=== PATIENT | female | born 1990 | race Caucasian/White ===

== ENCOUNTER 2017-09-02 04:08 | Emergency (ER) | payer OTHER ==
--- NOTE | 2017-09-02 04:32 | ED Physician Documentation ---
PD HPI CHEST PAIN - Stated complaint Stated Complaint: CHEST PRESSURE,SOA - Chief complaint Chief Complaint: Cardiac - History obtained from History obtained from: Patient, Family - History of Present Illness Timing - onset: How many weeks ago Timing - onset during: Rest Timing - details: Intermittant Quality: Pressure Location: Substernal, Left chest, Right chest Improved by: Rest Associated symptoms: Shortness of air, Palpitations Similar symptoms before: Work up / diagnostics Recently seen: Clinic - Additional information Additional information: Patient is a 27 year old female who is presenting to the emergency department for chest pain, palpitations and shortness of breath. Patient states that it has been going on for a few weeks and it comes and goes. Patient was in a cast for a broken leg about a month ago. patient saw her doctor on the [employer] [place] 5 days ago and the work up at that time was negative. Patient is supposed to have follow up with a electrical engineering manager but the appointment has not been made yet. Patient states that her pain came back today so she came back in for evaluation. Review of Systems Constitutional: denies: Fever, Chills Eyes: denies: Photophobia Ears: reports: Reviewed and negative Nose: reports: Reviewed and negative Throat: denies: Sore throat Cardiac: reports: Chest pain / pressure, Palpitations. denies: Calf pain Respiratory: denies: Cough, Wheezing GI: denies: Nausea, Vomiting : reports: Reviewed and negative Skin: reports: Reviewed and negative Musculoskeletal: denies: Neck pain, Back pain, Extremity swelling Neurologic: denies: Generalized weakness, Focal weakness, Numbness Immunocompromised: denies: Immunocompromised PD PAST MEDICAL HISTORY - Past Medical History Past Medical History: No - Past Surgical History Past Surgical History: No - Present Medications Home Medications: Ambulatory Orders Medication Instructions Recorded Confirmed No Known Home Medications [No 09/02/17 09/02/17 Known Home Medications] - Allergies Allergies/Adverse Reactions: Allergies Allergy/AdvReac Type Severity Reaction Status Date / Time No Known Drug Allergies Allergy Verified 09/02/17 04:19 - Social History Does the pt smoke?: No Smoking Status: Never smoker Does the pt drink ETOH?: No Does the pt have substance abuse?: No - Immunizations Immunizations are current?: Yes PD ED PE NORMAL - Vitals Vital signs reviewed: Yes - General General: Alert and oriented X 3, Well developed/nourished - HEENT HEENT: Atraumatic, PERRL, Moist mucous membranes - Neck Neck: Supple, no meningeal sign, No JVD - Cardiac Cardiac: No murmur, No rub - Respiratory Respiratory: No respiratory distress, Clear bilaterally - Abdomen Abdomen: Soft, Non tender, Non distended - Derm Derm: Normal color, Warm and dry, No rash - Extremities Extremities: No deformity, Normal ROM s pain, No edema, No calf tenderness / cord - Neuro Neuro: Alert and oriented X 3, No motor deficit, No sensory deficit, Normal speech Eye Opening: Spontaneous Motor: Obeys Commands Verbal: Oriented GCS Score: 15 PD ED PE EXPANDED - General General: Alert, Anxious - Cardiac Cardiac: Abnormal Rhythm Results - Vitals Vitals: Vital Signs - 24 hr 09/02/17 09/02/17 04:17 04:52 Temperature 36.3 C L Heart Rate 87 71 Respiratory 18 15 Rate Blood Pressure 142/101 H 106/55 L O2 Saturation 100 100 Oxygen O2 Source Room air - EKG (time done) 0424 Rate: Rate (enter#) (77) Rhythm: Other (sinus arrythmia ) [place]: Normal Intervals: Normal MD Ischemia: Normal ST segments Other comments: Other comments (occasional pvcs) Compare to prior EKG: Old EKG unavailable - Labs Labs: Laboratory Tests 09/02/17 09/02/17 09/02/17 05:04 05:04 05:04 WBC 10.1 RBC 4.69 Hgb 13.4 Hct 38.5 MCV 82.1 MCH 28.5 MCHC 34.7 RDW 13.4 Plt Count 221 MPV 8.4 Neut # 6.4 Lymph # 3.0 [place] # 0.5 Eos # 0.2 Baso # 0.1 Absolute Nucleated RBC 0.00 Nucleated RBC % 0.0 D-Dimer Sodium 139 Potassium 3.5 Chloride 104 Carbon Dioxide 23 Anion Gap 12.0 BUN 15 Creatinine 0.9 Estimated GFR (MDRD) 75 L Glucose 108 H Calcium 9.2 Total Bilirubin 0.3 AST 18 ALT 14 Alkaline Phosphatase 75 Troponin I < 0.04 B-Natriuretic Peptide Total Protein 7.4 Albumin 3.7 Globulin 3.7 Albumin/Globulin Ratio 1.0 Lipase 38 09/02/17 09/02/17 05:04 05:04 WBC RBC Hgb Hct MCV MCH MCHC RDW Plt Count MPV Neut # Lymph # [place] # Eos # Baso # Absolute Nucleated RBC Nucleated RBC % D-Dimer 215.5 Sodium Potassium Chloride Carbon Dioxide Anion Gap BUN Creatinine Estimated GFR (MDRD) Glucose Calcium Total Bilirubin AST ALT Alkaline Phosphatase Troponin I B-Natriuretic Peptide 26 Total Protein Albumin Globulin Albumin/Globulin Ratio Lipase - Rads (name of study) chest x-ray Radiology: Final report received (normal chest x-ray) PD MEDICAL DECISION MAKING - ED course Complexity details: reviewed old records, reviewed results, re-evaluated patient , considered differential, d/w patient, d/w family ED course: Patient was seen and examined at bedside. EKG was performed and showed a sinus arrhythmia with a few pvcs but no acute ischemic changes. chest x-ray was performed and was within normal limits. labs were drawn. Patient's D-dimer and troponin were negative. Patient and family were made aware of the findings. patient required no further work up and was stable for discharge with outpatient follow up. Departure - Departure Disposition: Home, Self Care Clinical Impression: Intermittent palpitations Condition: Good Instructions: ED Chest Pain Atypical Unkn Cause Follow-Up: HARJIT MEJIA DO [Primary Care Provider] - Within 3 Days Comments: Your diagnostics today were within normal limits. there is no sign of a blood clot in your lungs. You are having and occasional premature ventricular contraction. You should follow up with your doctor/heart doctor. the next step would be to get a holter monitor for a longer observation period. You should refrain from caffeine and other stimulants. Anxiety and stress may also be a contributing factor. You should try taking deep breaths and relaxing next time you have one of these episodes. You may return to the emergency department at any time for new, worsening or uncontrollable symptoms.
--- NOTE | 2017-09-02 04:45 | XRAY Preliminary Report ---
Exam: XR CHEST 1 VIEW IMPRESSION: Normal single view chest. [facility] SITE ID: [id number]
--- NOTE | 2017-09-02 04:48 | XRAY Report ---
EXAM: CHEST RADIOGRAPHY EXAM DATE: 09/02/2017 04:37 AM. CLINICAL HISTORY: Chest pain. COMPARISON: None. TECHNIQUE: 1 view. FINDINGS: Lungs/Pleura: No focal opacities evident. No pleural effusion. No pneumothorax. Mediastinum: Within exam limitations, the cardiomediastinal contour is normal. Other: None. IMPRESSION: Normal single view chest. [facility] Referring Provider Line: [phone] SITE ID: [id number]
[2017-09-02 04:53] VITALS: BP 106/55
[2017-09-02 05:10] LABS: BASOPHILS # (AUTO) 0.1 10^3/uL (0.0-0.1); BASOPHILS % (AUTO) 0.7 %; EOSINOPHILS # (AUTO) 0.2 10^3/uL (0.0-0.7); EOSINOPHILS % (AUTO) 2.3 %; HGB - HEMOGLOBIN 13.4 g/dL (12.0-16.0); LYMPHOCYTES % (AUTO) 29.4 %; MEAN CORPUSCULAR HEMOGLOBIN 28.5 pg (27.0-31.0); MEAN CORPUSCULAR HGB CONC 34.7 g/dL (32.0-36.0); MEAN CORPUSCULAR VOLUME 82.1 fL (81.0-99.0); MEAN PLATELET VOLUME 8.4 fL (7.9-10.8); MONOCYTES # (AUTO) 0.5 10^3/uL (0.0-1.0); MONOCYTES % (AUTO) 4.5 %; NEUTROPHILS # (AUTO) 6.4 10^3/uL (1.5-6.6); NEUTROPHILS % (AUTO) 63.1 %; PLT - PLATELET COUNT 221 10^3/uL (130-450); RED BLOOD COUNT 4.69 10^6/uL (4.20-5.40); RED CELL DISTRIBUTION WIDTH 13.4 % (12.0-15.0); WHITE BLOOD COUNT 10.1 x10^3/uL (4.8-10.8)
[2017-09-02 05:24] LABS: ALBUMIN 3.7 g/dL (3.2-5.5); BILIRUBIN,TOTAL 0.3 mg/dL (0.2-1.0); CALCIUM 9.2 mg/dL (8.5-10.3); CREATININE 0.9 mg/dL (0.4-1.0); TOTAL PROTEIN 7.4 g/dL (6.7-8.2)
== END 2017-09-02 06:07 | disposition home or self-care (01) ==
LOC: ED 04:08
DX: R00.2 Palpitations (principal); I49.3 Ventricular premature depolarization
CPT/HCPCS: 36415; 71010; 80053; 83690; 83880; 84443; 84484; 85025; 85379; 93005; 99283

== ENCOUNTER 2019-08-11 04:32 | Emergency (ER) | payer OTHER ==
[2019-08-11 05:20] LABS: BASOPHILS # (AUTO) 0.1 10^3/uL (0.0-0.1); BASOPHILS % (AUTO) 0.6 %; EOSINOPHILS # (AUTO) 0.3 10^3/uL (0.0-0.7); EOSINOPHILS % (AUTO) 2.3 %; HGB - HEMOGLOBIN 13.8 g/dL (12.0-16.0); LYMPHOCYTES # (AUTO) 1.5 10^3/uL (1.5-3.5); LYMPHOCYTES % (AUTO) 10.9 %; MEAN CORPUSCULAR HEMOGLOBIN 28.8 pg (27.0-31.0); MEAN CORPUSCULAR HGB CONC 33.7 g/dL (32.0-36.0); MEAN CORPUSCULAR VOLUME 85.4 fL (81.0-99.0); MEAN PLATELET VOLUME 11.2 fL (7.9-10.8); MONOCYTES % (AUTO) 7.3 %; NEUTROPHILS # (AUTO) 10.4 10^3/uL (1.5-6.6); NEUTROPHILS % (AUTO) 78.5 %; PLT - PLATELET COUNT 203 10^3/uL (130-450); RED BLOOD COUNT 4.79 10^6/uL (4.20-5.40); RED CELL DISTRIBUTION WIDTH 13.5 % (12.0-15.0); WHITE BLOOD COUNT 13.3 x10^3/uL (4.8-10.8)
[2019-08-11] MEDS ORDERED: LIDOCAINE VISCOUS 2% 15 ML UDC MM STA (05:26)
[2019-08-11] MEDS ORDERED: MAG HYDROX/AL HYDROX/SIMETH 30 ML UDC PO STA (05:26)
[2019-08-11 05:28] LABS: HCG UR QUAL NEGATIVE
[2019-08-11 05:36] LABS: ALBUMIN 4.2 g/dL (3.2-5.5); ALBUMIN/GLOBULIN RATIO 1.1 (1.0-2.2); BILIRUBIN,TOTAL 1.4 mg/dL (0.2-1.0); CALCIUM 9.1 mg/dL (8.5-10.3); CREATININE 0.8 mg/dL (0.4-1.0); TOTAL PROTEIN 7.9 g/dL (6.7-8.2)
--- NOTE | 2019-08-11 05:46 | XRAY Report ---
Reason: chest pain Procedure Date: 08/11/2019 Accession Number: [id number] / [id number] Procedure: XR - Chest 1 View X-Ray CPT Code: 20926 Final Report FULL RESULT: EXAM: CHEST RADIOGRAPHY EXAM DATE: 08/11/2019 05:38 AM. CLINICAL HISTORY: Chest pain. COMPARISON: CHEST 1 VIEW 09/02/2017 4:27 AM. TECHNIQUE: 1 view. FINDINGS: Lungs/Pleura: No focal opacities evident. No pleural effusion. No pneumothorax. Mediastinum: Within exam limitations, the cardiomediastinal contour is normal. Other: None. IMPRESSION: Stable negative single view chest. [facility]
[2019-08-11] MEDS ORDERED: KETOROLAC 30 MG/ML VIAL IVP STA (06:09)
--- NOTE | 2019-08-11 06:52 | ED Physician Documentation ---
PD HPI ABD PAIN - Stated complaint Stated Complaint: CP/ABD PX/NAUSEA - Chief complaint Chief Complaint: Cardiac - History obtained from History obtained from: Patient - History of Present Illness Timing - onset: Today Timing - duration: Hours Timing - details: Abrupt onset Severity Comments: moderate Quality: Sharp Location: RUQ, Epigastric, Other Radiation: Chest Improved by: Other (nothing) Worsened by: Palpation Associated symptoms: Nausea, Chest pain. No: Fever, Vomiting, Hematemesis, Diarrhea, Constipation, Melena, Hematochezia, Dysuria, Hematuria, Dizzy, Near syncope / syncope Similar symptoms before: Has not had sx before Recently seen: Not recently seen - Treatment prior to arrival Treatment prior to arrival: none - Additional information Additional information: States she has associated chest pain, no sob. Pain is nonexertional. Review of Systems Ten Systems: 10 systems reviewed and negative Constitutional: denies: Fever Cardiac: reports: Chest pain / pressure. denies: Palpitations GI: reports: Abdominal Pain, Nausea. 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 : None HEENT: None Psych: None Musculoskeletal: None Derm: None Other Past Medical History: PVC's - Past Surgical History Past Surgical History: No /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 - Present Medications Home Medications: Ambulatory Orders Medication Instructions Recorded Confirmed Famotidine 20 mg PO DAILY #30 tablet 08/11/19 Ondansetron Odt [Zofran] 4 mg TL Q6H PRN #10 tablet 08/11/19 - Allergies Allergies/Adverse Reactions: Allergies Allergy/AdvReac Type Severity Reaction Status Date / Time No Known Drug Allergies Allergy Verified 09/02/17 04:19 - Social History Does the pt smoke?: No Smoking Status: Former smoker Does the pt drink ETOH?: No Does the pt have substance abuse?: No - Immunizations Immunizations are current?: Yes - POLST Patient has POLST: No PD ED PE NORMAL - Vitals Vital signs reviewed: Yes - General General: Alert and oriented X 3, No acute distress, Well developed/nourished - HEENT HEENT: Atraumatic, Moist mucous membranes, Pharynx benign - Neck Neck: Supple, no meningeal sign, No JVD - Cardiac Cardiac: RRR, No murmur, No gallop, No rub - Respiratory Respiratory: No respiratory distress, Clear bilaterally - Abdomen Abdomen: Soft, Non distended - Female Female : Deferred - Rectal Rectal: Deferred - Derm Derm: Normal color, Warm and dry, No rash - Extremities Extremities: No deformity, No tenderness to palpate, No edema - Neuro Neuro: Alert and oriented X 3, Normal speech Eye Opening: Spontaneous Motor: Obeys Commands Verbal: Oriented GCS Score: 15 - Psych Psych: Normal mood, Normal affect PD ED PE EXPANDED - Abdomen Abdomen: Tender to palpation, RUQ, Epigastric. No: Distended, Rebound, Guarding Results - Vitals Vitals: Vital Signs - 24 hr 08/11/19 08/11/19 08/11/19 04:47 04:51 05:48 Temperature 36.4 C L Heart Rate 72 67 Respiratory 12 20 Rate Blood Pressure 126/65 120/79 Blood Pressure 126/65 [Left] Blood Pressure 119/72 [Right] O2 Saturation 97 98 08/11/19 08/11/19 07:37 08:12 Temperature Heart Rate 72 74 Respiratory 18 18 Rate Blood Pressure 107/79 117/67 Blood Pressure [Left] Blood Pressure [Right] O2 Saturation 96 98 Oxygen O2 Source Room air - EKG (time done) 04:40 Rate: Rate (enter#) Rhythm: NSR [place]: Normal Intervals: Normal [place] QRS: Normal Ischemia: Normal ST segments Computer interpretation: Agree with computer - Labs Labs: Laboratory Tests 08/11/19 08/11/19 08/11/19 05:00 05:00 05:00 WBC 13.3 H RBC 4.79 Hgb 13.8 Hct 40.9 MCV 85.4 MCH 28.8 MCHC 33.7 RDW 13.5 Plt Count 203 MPV 11.2 H Neut # (Auto) 10.4 H Lymph # (Auto) 1.5 [place] # (Auto) 1.0 Eos # (Auto) 0.3 Baso # (Auto) 0.1 Absolute Nucleated RBC 0.00 Nucleated RBC % 0.0 Sodium 139 Potassium 4.1 Chloride 103 Carbon Dioxide 24 Anion Gap 12.0 BUN 19 Creatinine 0.8 Estimated GFR (MDRD) 84 L Glucose 99 Calcium 9.1 Total Bilirubin 1.4 H AST 67 H ALT 38 Alkaline Phosphatase 114 Troponin I High Sens < 2.3 L Total Protein 7.9 Albumin 4.2 Globulin 3.7 Albumin/Globulin Ratio 1.1 Lipase 38 Ur Specific [place] Urine HCG, Qual 08/11/19 05:21 WBC RBC Hgb Hct MCV MCH MCHC RDW Plt Count MPV Neut # (Auto) Lymph # (Auto) [place] # (Auto) Eos # (Auto) Baso # (Auto) Absolute Nucleated RBC Nucleated RBC % Sodium Potassium Chloride Carbon Dioxide Anion Gap BUN Creatinine Estimated GFR (MDRD) Glucose Calcium Total Bilirubin AST ALT Alkaline Phosphatase Troponin I High Sens Total Protein Albumin Globulin Albumin/Globulin Ratio Lipase Ur Specific [place] 1.025 Urine HCG, Qual NEGATIVE - Rads (name of study) CXR Radiology: Final report received, EMP read contemporaneously, See rad report Procedures - Bedside sono Bedside sono by EMP: RUQ US reveals a large gallstone and a borderline thickened GB wall. PD MEDICAL DECISION MAKING - ED course Complexity details: reviewed results, re-evaluated patient, considered differential, d/w patient ED course: 29 y/o F with epigastric, RUQ abdominal and substernal CP, nausea but no vomiting. Has an elevated wbc and elevated bilirubin of 1.4, mildly elevated LFTs. EKG and troponin neg, symptoms not concerning for ACS. CXR is neg. Pt is well appearing afebrile. Bedside US does reveal a large gallstone and thickened GB wall with a positive Gerardo's sign thus pending radiology US result to evaluate for cholecystitis. She also has a very small back wound healing from a biopsy which is well appearing without signs of infection. Needs breast pump to pump and dump after receiving analgesics for gallstones in the ED. US shows cholelithiasis without cholecystitis. Her pain is controlled and pt is tolerating PO. Pt is stable for discharge with outpt f/u with PCP to arrange f/u with surgery f or eval of cholecystectomy. Departure - Departure Disposition: 01 Home, Self Care Clinical Impression: Gallstones, Epigastric abdominal pain Condition: Stable Instructions: ED Abdominal Pain Gallstone Poss, ED Epigastric Pain UKO Follow-Up: HARJIT MEJIA DO [Primary Care Provider] - As Needed Prescriptions: Famotidine 20 mg PO DAILY #30 tablet Ondansetron Odt [Zofran] 4 mg TL Q6H PRN #10 tablet PRN Reason: Nausea / Vomiting Comments: Your ultrasound today showed gallstones which may be the cause of your symptoms. Alternatively, you may be having pain from stomach irritation, since you did get some improvement with the "GI cocktail", which would have worked just for the stomach. Your EKG, heart enzymes and chest xray were normal. You can take tylenol for pain if not improved. Also try antacids such as Maalox or Mylanta for symptoms. If recurrent symptoms, improved with antacids, then it would help to take acid-reducing medication for a few weeks, such as Famotidine (Pepcid). There is a prescription for these if you need. Take zofran as needed for nausea and vomiting. Follow up with your regular doctor to arrange surgery referral to evaluate you for gallbladder removal. Forms: Activity restrictions Discharge Date/Time: 08/11/19 08:13
--- NOTE | 2019-08-11 07:20 | Ultrasound Report ---
Reason: RUQ US, gallstones, eval for cholecystitis Procedure Date: 08/11/2019 Accession Number: [id number] / [id number] Procedure: US - Abdomen Limited CPT Code: Final Report FULL RESULT: EXAM: ABDOMEN ULTRASOUND LIMITED, RUQ EXAM DATE: 08/11/2019 06:51 AM. CLINICAL HISTORY: Right upper quadrant pain. COMPARISON: None. TECHNIQUE: Real-time scanning was performed with static images obtained. FINDINGS: Liver: Hepatic parenchymal echotexture is within normal limits. No hepatic lesions. No intrahepatic ductal dilatation. The liver is upper normal in size, 18.2 cm. Main portal vein flow: Hepatopetal. Gallbladder: Multiple mobile gallstones are seen in the gallbladder. Gallbladder wall thickness is upper normal. No pericholecystic fluid. No sonographic Gerardo's sign per network operations manager. Biliary System: CBD measures 3-4 mm. No intrahepatic or extrahepatic ductal dilatation. Other: The visualized pancreas is unremarkable. The right kidney is normal in contour and echotexture measures 12.5 cm. No hydronephrosis. IMPRESSION: 1. Cholelithiasis. No sonographic evidence of acute cholecystitis. 2. No biliary ductal dilatation. [facility]
--- NOTE | 2019-08-11 08:03 | ED Physician Documentation ---
ED Addendum - Addendum Addendum: 08/11/19 08:01 The patient's ultrasound did not show any signs of acute cholecystitis. The previously known gallstones are still present. Bile duct appeared normal size. This could be gallbladder spasm or early cholecystitis. However she did get improvement with a GI cocktail here and her pain references more to the midline epigastric so consider some gastritis or reflux alternatively. We discussed these options. She can try some antacid and famotidine. Follow-up with her pr imary care regarding gallstones. To use Tylenol if needed for pains. Minimal ibuprofen in case this was stomach related instead.
[2019-08-11 08:12] VITALS: BP 117/67
== END 2019-08-11 08:13 | disposition home or self-care (01) ==
LOC: ED 04:32
DX: K80.20 Calculus of gallbladder without cholecystitis without obstruction (principal); R10.13 Epigastric pain; R07.89 Other chest pain; Z87.891 Personal history of nicotine dependence
CPT/HCPCS: 36415; 71045; 76705; 80053; 81025; 83690; 84484; 85025; 93005; 99284; A9270

== ENCOUNTER 2019-11-18 09:22 | Emergency (ER) | payer OTHER ==
--- NOTE | 2019-11-18 10:52 | ED Physician Documentation ---
PD HPI LOWER EXT INJURY - Stated complaint Stated Complaint: LT LEG SWELLING/PX - Chief complaint Chief Complaint: Ext Problem - History obtained from History obtained from: Patient - History of Present Illness PD HPI LOW EXT INJURY LOCATION: Left, Knee, Lower leg Type of injury: Other (She had done her regular exercise workout in the gym yesterday and had noted afterward area of tenderness and irritation in the medial aspect of the proximal lower leg with some firmness and tenderness of some varicose veins she had had. This morning it extended to the medial knee and a little bit to the lower medial thigh. It is superficially tender. She denies any deeper leg pain or calf pain or any lower extremity swelling. [place] consideration of ultrasound.). No: Fall, Twist, Blunt / blow Timing - onset: Yesterday Timing - details: Abrupt onset, Still present Worsened by: Palpating. No: Moving Associated symptoms: No: Weakness, Numbness, Swelling Similar symptoms before: Has not had sx before (She has had small varicosities the veins there for a long time but never any prior tenderness of them. No recent travel. She is not smoker. 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 - Present Medications Home Medications: Ambulatory Orders Medication Instructions Recorded Confirmed Famotidine 20 mg PO DAILY #30 tablet 08/11/19 Ondansetron Odt [Zofran] 4 mg TL Q6H PRN #10 tablet 08/11/19 Ibuprofen [Motrin] 600 mg PO TID PRN #25 tab 11/18/19 - Allergies Allergies/Adverse Reactions: Allergies Allergy/AdvReac Type Severity Reaction Status Date / Time No Known Drug Allergies Allergy Verified 11/18/19 09:32 - Social History Does the pt smoke?: No Smoking Status: Former smoker Does the pt drink ETOH?: No Does the pt have substance abuse?: No - Immunizations Immunizations are current?: Yes - POLST Patient has POLST: No PD ED PE NORMAL - Vitals Vital signs reviewed: Yes - General General: Alert and oriented X 3, No acute distress, Well developed/nourished - Cardiac Cardiac: RRR, No murmur - Respiratory Respiratory: Clear bilaterally - Derm Derm: Normal color, Warm and dry - Extremities Extremities: Other (The medial aspect of the left proximal lower leg and side of the knee show some varicosities with local firmness and tenderness but no redness or warmth. The popliteal and calf area themselves are not tender and there is no swelling. There is no edema of the lower leg. The medial mid thighs without any tenderness. Femoral pulses are normal. There is no inguinal adenopathy.) - Neuro Neuro: Alert and oriented X 3, No motor deficit, No sensory deficit, Normal speech Results - Vitals Vitals: Vital Signs - 24 hr 11/18/19 11/18/19 09:26 11:33 Temperature 36.3 C L 36.4 C L Heart Rate 78 74 Respiratory 16 16 Rate Blood Pressure 123/76 125/94 H O2 Saturation 96 96 Oxygen O2 Source Room air - Rads (name of study) duplex left leg Radiology: Prelim report reviewed (no DVT), See rad report PD MEDICAL DECISION MAKING - ED course Complexity details: considered differential (Clinically apparent superficial phlebitis. There is no real physical exam to suggest high probability for DVT but given the phlebitis, we can check a duplex to ensure no deep clots as well.), d/w patient Departure - Departure Disposition: 01 Home, Self Care Clinical Impression: Superficial thrombophlebitis Qualifiers: Superficial thrombophlebitis-Involved body area: lower extremity Laterality: left Qualified Code(s): I80.02 - Phlebitis and thrombophlebitis of superficial vessels of left lower extremity Clinical Impression: (Ruled Out): Deep vein thrombosis Condition: Stable Record reviewed to determine appropriate education?: Yes Instructions: ED Phlebitis Superficial Follow-Up: HARJIT MEJIA DO [Primary Care Provider] - Prescriptions: Ibuprofen [Motrin] 600 mg PO TID PRN #25 tab PRN Reason: Pain Comments: No signs of deep vein clots. You do have the superficial phlebitis which is an irritation of the surface vein. This will get treated with local warmth and heat a few times a day and some anti-inflammatory such as ibuprofen 3 times a day. This should resolve over several days. Recheck if not resolving well or if developing more general calf pain, leg swelling, redness or more swelling. Discharge Date/Time: 11/18/19 12:51
[2019-11-18] MEDS ORDERED: IBUPROFEN 800 MG TABLET PO STA (11:04)
[2019-11-18] MEDS ORDERED: ACETAMINOPHEN 325 MG TABLET PO STA (11:04)
[2019-11-18 11:34] VITALS: BP 125/94
--- NOTE | 2019-11-18 12:51 | Ultrasound Report ---
Reason: left lower leg phlebitis, eval for DVT as well Procedure Date: 11/18/2019 Accession Number: [id number] / [id number] Procedure: US - Duplex Ext Veins Left CPT Code: Final Report FULL RESULT: EXAM: LEFT LOWER EXTREMITY VENOUS ULTRASOUND EXAM DATE: 11/18/2019. CLINICAL HISTORY: Left lower leg phlebitis, evaluate for deep vein thrombosis as well. COMPARISON: None. TECHNIQUE: Real-time sonographic vascular imaging was performed by the collar packer through the lower extremity utilizing both color-flow and Doppler spectral analysis. Multiple traveling representative static images were saved for review. FINDINGS: Common Femoral Vein (CFV): Normal. CFV-GSV Junction: Normal. Profunda Femoral Vein (PFV): Normal. Femoral Vein (FV) Prox: Normal. Femoral Vein (FV) Mid: Normal. Femoral Vein (FV) Dist: Normal. Popliteal Vein: Normal. Posterior Tibial Veins: Normal. Peroneal Veins: Normal. IMPRESSION: No ultrasound findings of deep vein thrombosis of the left leg. [facility]
== END 2019-11-18 12:51 | disposition home or self-care (01) ==
LOC: ED 09:22
DX: I80.02 Phlebitis and thrombophlebitis of superficial vessels of left lower extremity (principal); F17.200 Nicotine dependence, unspecified, uncomplicated
CPT/HCPCS: 93971; 99284; A9270